=== PATIENT | female | born 1990 | race Caucasian/White ===

== ENCOUNTER 2018-02-17 03:43 | Inpatient (IN) | payer BC ==
--- OUTSIDE RECORDS SUMMARY | 2018-02-17 18:56 | XMS REPORT ---
:1990 Author Organization eClinicalWorks Care Team Providers Name Role Phone You Petit Provider Role Unavailable Allergies No Known Allergies Problems Problem Type Condition Code Onset Dates Condition Status Assessment Encounter for supervision of normal Z34.03 Active first in third trimester Assessment Abnormal glucose affecting O99.810 Active Assessment Obesity complicating in O99.213 Active third trimester Problem Encounter for supervision of normal Z34.03 Active first in third trimester Problem Abnormal glucose affecting O99.810 Active Problem Obesity complicating in O99.213 Active third trimester Problem Encounter for supervision of normal Z34.02 Active first in second trimester Problem Obesity affecting in O99.212 Active second trimester Problem Seasonal allergic rhinitis, J30.2 Active unspecified trigger Problem Cough R05 Active Medications Medication Code System Code Instructions Start Date End Date Status Dosage [facility] [address] Active not defined 1 Results No Known Results Summary Purpose eClinicalWorks Submission
--- OUTSIDE RECORDS SUMMARY | 2018-02-17 18:56 | XMS REPORT ---
:1990 Author Organization eClinicalWorks Care Team Providers Name Role Phone You Petit Provider Role Unavailable Allergies No Known Allergies Problems Problem Type Condition Code Onset Dates Condition Status Assessment Obesity affecting in O99.212 Active second trimester Assessment Encounter for supervision of normal Z34.03 Active first in third trimester Problem Abnormal glucose affecting O99.810 Active Problem Cough R05 Active Problem Encounter for supervision of normal Z34.03 Active first in third trimester Problem Obesity affecting in O99.212 Active second trimester Assessment Abnormal glucose affecting O99.810 Active Problem Seasonal allergic rhinitis, J30.2 Active unspecified trigger Problem Encounter for supervision of normal Z34.02 Active first in second trimester Medications Medication Code System Code Instructions Start Date End Date Status Dosage [facility] [address] Active not defined 1 Results No Known Results Summary Purpose [employer] Submission
--- OUTSIDE RECORDS SUMMARY | 2018-02-17 18:56 | XMS REPORT ---
[...] Instructions Start Date End Date Status Dosage NDC 0 Active not defined Results No Known Results Summary Purpose eClinicalWorks Submission
--- OUTSIDE RECORDS SUMMARY | 2018-02-17 18:56 | XMS REPORT ---
[...] Instructions Start Date End Date Status Dosage [facility] [address] Active not defined 1 Results No Known Results Immunizations Vaccine Administration Date TDAP > 7 Years-Adacel January 26, 2018 Summary Purpose eClinicalWorks Submission
--- OUTSIDE RECORDS SUMMARY | 2018-02-17 18:56 | XMS REPORT ---
:1990 Author Organization eClinicalWorks Care Team Providers Name Role Phone Jeannette Parada Provider Role Unavailable Allergies, Adverse Reactions, Alerts Substance Reaction Event Type N.K.D.A. Info Not Available Non Drug Allergy Problems Problem Type Condition Code Onset Dates Condition Status Problem Seasonal allergic rhinitis, J30.2 Active unspecified trigger Problem Obesity affecting in O99.212 Active second trimester Problem Cough R05 Active Assessment Seasonal allergic rhinitis, J30.2 Active unspecified trigger Problem Encounter for supervision of normal Z34.02 Active first in second trimester Assessment Cough R05 Active Medications Medication Code System Code Instructions Start Date End Date Status Dosage [facility] [address] Active not defined 1 Results No Known Results Summary Purpose eClinicalWorks Submission
--- OUTSIDE RECORDS SUMMARY | 2018-02-17 18:56 | XMS REPORT ---
:1990 Author Organization eClinicalWorks Care Team Providers Name Role Phone You Petit Provider Role Unavailable Allergies No Known Allergies Problems Problem Type Condition Code Onset Dates Condition Status Problem Encounter for supervision of normal Z34.03 Active first in third trimester Problem Abnormal glucose affecting O99.810 Active Problem Obesity complicating in O99.213 Active third trimester Problem Encounter for supervision of normal Z34.02 Active first in second trimester Problem Obesity affecting in O99.212 Active second trimester Problem Seasonal allergic rhinitis, J30.2 Active unspecified trigger Problem Cough R05 Active Medications No Known Medications Results No Known Results Summary Purpose eClinicalWorks Submission
--- OUTSIDE RECORDS SUMMARY | 2018-02-17 18:56 | XMS REPORT ---
[...] Start Date End Date Status Dosage [facility] [address] Active not defined 1 Results No Known Results Summary Purpose eClinicalWorks Submission
--- OUTSIDE RECORDS SUMMARY | 2018-02-17 18:56 | XMS REPORT ---
:1990 Author Organization eClinicalWorks Care Team Providers Name Role Phone You Petit Provider Role Unavailable Allergies No Known Allergies Problems Problem Type Condition Code Onset Dates Condition Status Problem Cough R05 Active Problem Seasonal allergic rhinitis, J30.2 Active unspecified trigger Problem Abnormal glucose affecting O99.810 Active Assessment Obesity affecting in O99.212 Active second trimester Assessment Encounter for supervision of normal Z34.02 Active first in second trimester Problem Obesity affecting in O99.212 Active second trimester Problem Encounter for supervision of normal Z34.02 Active first in second trimester Medications Medication Code System Code Instructions Start Date End Date Status Dosage [facility] [address] Active not defined 1 Results No Known Results Summary Purpose eClinicalWorks Submission
--- OUTSIDE RECORDS SUMMARY | 2018-02-17 18:56 | XMS REPORT ---
:1990 Author Organization eClinicalWorks Care Team Providers Name Role Phone You Petit Provider Role Unavailable Allergies No Known Allergies Problems Problem Type Condition Code Onset Dates Condition Status Assessment Encounter for supervision of normal Z34.03 Active first in third trimester Problem Encounter for supervision of [...] Instructions Start Date End Date Status Dosage [facility] [address] Active not defined 1 Results No Known Results Summary Purpose eClinicalWorks Submission
--- OUTSIDE RECORDS SUMMARY | 2018-02-17 18:56 | XMS REPORT ---
:1990 Author Organization eClinicalWorks Care Team Providers Name Role Phone You Petit Provider Role Unavailable Allergies No Known Allergies Problems Problem Type Condition Code Onset Dates Condition Status Problem Encounter for supervision of normal Z34.02 Active first in second trimester Assessment Obesity affecting in O99.212 Active second trimester Problem Obesity affecting in O99.212 Active second trimester Assessment Encounter for supervision of normal Z34.02 Active first in second trimester Medications No Known Medications Results No Known Results Summary Purpose eClinicalWorks Submission
--- OUTSIDE RECORDS SUMMARY | 2018-02-17 18:56 | XMS REPORT ---
:1990 Author Organization eClinicalWorks Care Team Providers Name Role Phone You Petit Provider Role Unavailable Allergies No Known Allergies Problems Problem Type Condition Code Onset Dates Condition Status Assessment Abnormal glucose affecting O99.810 Active Problem Cough R05 Active Problem Seasonal allergic rhinitis, J30.2 Active unspecified trigger Problem Abnormal glucose affecting O99.810 Active Assessment Encounter for supervision of normal Z34.02 Active first in second trimester Assessment Obesity affecting in O99.212 Active second trimester Problem Obesity affecting in O99.212 Active second trimester Problem Encounter for supervision of normal Z34.02 Active first in second trimester Medications No Known Medications Results No Known Results Summary Purpose eClinicalWorks Submission
--- OUTSIDE RECORDS SUMMARY | 2018-02-17 18:56 | XMS REPORT ---
:1990 Author Organization eClinicalWorks Care Team Providers Name Role Phone You Petit Provider Role Unavailable Allergies No Known Allergies Problems Problem Type Condition Code Onset Dates Condition Status Assessment Encounter for supervision of normal Z34.03 Active first in third trimester Assessment Abnormal glucose affecting O99.810 Active Assessment Obesity affecting in O99.212 Active second trimester Problem Abnormal glucose affecting O99.810 Active Problem Cough R05 Active Problem Encounter for supervision of normal Z34.03 Active first in third trimester Problem Obesity affecting in O99.212 Active second trimester Problem Seasonal allergic rhinitis, J30.2 Active unspecified trigger Problem Encounter for supervision of normal Z34.02 Active first in second trimester Medications Medication Code System Code Instructions Start Date End Date Status Dosage [facility] [address] Active not defined 1 Results No Known Results Summary Purpose [facility] Submission
--- OUTSIDE RECORDS SUMMARY | 2018-02-17 18:56 | XMS REPORT ---
:1990 Author Organization eClinicalWorks Care Team Providers Name Role Phone You Petit Provider Role Unavailable Allergies No Known Allergies Problems Problem Type Condition Code Onset Dates Condition Status Problem Abnormal glucose affecting O99.810 Active Problem [...]
[2018-02-17] MEDS ORDERED: Ringers Lactate 1,000 ML IV PRN (19:09)
[2018-02-17] MEDS ORDERED: CARBOPROST TROME 250 MCG/ML IM PRN (19:15)
[2018-02-17] MEDS ORDERED: METHYLERGONOVINE 0.2MG/ML AMP IM PRN (19:15)
[2018-02-17 19:52] LABS: RPR Titer ND
[2018-02-17] MEDS ORDERED: Ringers Lactate 1,000 ML IV SCH (20:00)
[2018-02-17] MEDS ORDERED: OXYTOCIN/LR 20 UNITS/1,000 ML BAG IV SCH (20:00)
[2018-02-17 20:04] VITALS: BMI 35.2
[2018-02-17 20:05] LABS: Absolute Lymphocytes (CBC) 1.7 K/uL (0.7-4.9); Absolute Monocytes 0.8 K/uL (0.1-1.3); Absolute Neutrophil 6.1 K/uL (1.8-8.0); Basophils % 0.2 % (0-1.3); Eosinophils % 0.6 % (0-4.4); Hematocrit 33.9 % (36.0-45.0); Lymphocytes % 19.4 % (15.3-44.8); MCH 28.2 pg (27.0-35.0); MCV 82.6 fL (80-100); MPV 9.8 fL (7.6-11.3); Monocytes % 8.9 % (3.3-12.3)
[2018-02-17 20:08] LABS: Protime INR 0.92
[2018-02-17 20:16] LABS: ALT/SGPT 15 U/L (12-78); AST/SGOT 16 U/L (15-37); Albumin 2.5 g/dL (3.4-5.0); Alkaline Phosphatase 197 U/L (45-117); BUN Blood Urea Nitrogen 8 mg/dL (7-18); Bicarbonate 24 mmol/L (21-32); Bilirubin Direct < 0.1 mg/dL (0-0.2); Bilirubin Total 0.2 mg/dL (0.2-1.0); Glucose Level 91 mg/dL (74-106); Potassium 3.8 mmol/L (3.5-5.1); Protein, Total 6.5 g/dL (6.4-8.2); Sodium Level 140 mmol/L (136-145); Uric Acid 6.8 mg/dL (2.6-6.0)
[2018-02-17 20:46] LABS: Urine Appearance CLEAR; Urine Bilirubin NEGATIVE (NEG); Urine Blood NEGATIVE (NEG); Urine Color YELLOW; Urine Glucose NEGATIVE (NEG); Urine Protein NEGATIVE (NEG); Urine Specific Gravity 1.025 (1.005-1.030); Urine Urobilinogen 0.2 mg/dL (0.2-1.0)
[2018-02-17 21:00] LABS: Urine Microscopic Reflex NO UMIC
[2018-02-17] MEDS ORDERED: miSOPROStol 100 MCG TAB VAG SCH (21:00)
[2018-02-17] MEDS ORDERED: miSOPROStol 100 MCG TAB ONE (21:00)
[2018-02-17 21:37] LABS: Urine Protein/Creatinine Ratio 0.11 ratio (<0.15)
[2018-02-17 22:48] LABS: RPR (Rapid Plasma Reagin) NON-REACT (NON-REACT)
--- NOTE | 2018-02-18 06:08 | HP ---
Date of Admission: 02/17/2018 History Of Present Illness: Мария is a 27-year-old, 1, para 0, at 38 weeks and 6 days' gest ation, who presents for induction of labor due to preeclampsia. The patient has been followed with kerrie amado beginning at 9 weeks' gestation. care has been complicated by obesity, otherwise has been normal until approximately 36 weeks' gestation where she began to have some elevated blood pressures and proteinuria. Preeclamptic labs were performed last week and her uric acid was noted to be eleva yulissa. She denies any symptoms; no headache, no visual changes, no shortness of breath. She reports g ood movement, denies vaginal bleeding, no leakage of fluid, and her contractions have been mini mal. She recently had an ultrasound performed on February 04, 2018, which showed that the fetus is in ce phalic presentation, measuring appropriately; placenta is anterior, no previa; and amniotic fluid vol ume was normal. records are available for review, no issues were noted. Past Medical History: Positive for HPV. Past Surgical History: She had a procedure done on her left femur in 2007. Social History: to the father of the baby. Works in an office. No tobacco, alcohol, or melinda g use. Family History: Noncontributory. Physical Examination: Vital Signs: On admission, blood pressure is 136/90, pulse of 78, respirations 18, temperature is 98 .6. General: The patient resting comfortably in bed. Head and Neck: Normocephalic, atraumatic. Neck: Supple. Heart: Regular rate and rhythm. Respiratory: Symmetric, nonlabored breathing. Abdomen: Gravid. Extremities: Bilateral lower extremities with +2 edema bilaterally. Vagina: Normal external female genitalia. Vagina is pink, moist, normal rugae. Cervix is closed, 5 0% effaced, -3 station. First dose of Cytotec has been placed. Heart Rate Monitoring: Baseline heart rate is 130, moderate variability, category 2 trac ing Leota: Irregular contractions noted. Laboratory Findings: White blood cell count 8.7, hemoglobin 11.6, hematocrit 33.9, platelet count is 214. Liver enzymes are normal. Uric acid is 6.8. Urine labs are pending. Assessment And Plan: Мария is a 27-year-old, 1, para 0, at 38 weeks and 5 days, who present s for cervical ripening and is scheduled for induction of labor for tomorrow due to likely preeclamps ia. Cytotec has been placed for cervical ripening, next dose will be given in 4 hours. GBS test is negative. Continuous maternal monitoring will be started tomorrow. Intermittent monitoring wi ll be performed overnight. AUGUSTINA Voice ID: [id number]
[2018-02-18] MEDS ORDERED: ROPIVACAINE HCL 100 ML IV PRN (09:46)
[2018-02-18] MEDS ORDERED: ROPIVACAINE HCL 0.2% 20ML AMP IV ONE (09:49)
[2018-02-18] MEDS ORDERED: FENTANYL CITR 100 MCG/2 ML IV ONE (09:50)
[2018-02-18] MEDS ORDERED: NA CIT/CITRIC AC 30 ML ORAL UDC PO ONE (13:44)
[2018-02-18] MEDS ORDERED: METOCLOPRAMIDE 10 MG/2mL INJ IV SCH (14:00)
[2018-02-18] MEDS ORDERED: CEFAZOLIN/SWI 2gm 2 GM/20 ML SYR IVP SCH (14:00)
[2018-02-18] MEDS ORDERED: ROPIVACAINE HCL 20 ML ONE (16:30)
[2018-02-18] MEDS ORDERED: CARBOPROST TROME 250 MCG/ML IM ONE (16:43)
[2018-02-18] MEDS ORDERED: METHYLERGONOVINE 0.2MG/ML AMP IM ONE (16:43)
[2018-02-18] MEDS ORDERED: ACETAMINOPHEN 500 MG TAB PO PRN (17:17)
[2018-02-18] MEDS ORDERED: ONDANSETRON 4 MG (ODT) TAB PO PRN (17:17)
[2018-02-18] MEDS ORDERED: METHYLERGONOVINE 0.2 MG TAB PO PRN (17:17)
[2018-02-18] MEDS ORDERED: BISACODYL 10 MG RECTAL SUPP RECT PRN (17:17)
[2018-02-18] MEDS ORDERED: Oxycodone HCl/Acetaminophen 1 TAB TAB PO PRN (17:17)
[2018-02-18] MEDS: IBUPROFEN 200 MG TAB PO PRN (21:39)
--- NOTE | 2018-02-18 22:28 | P.OP ---
Date of Service: 02/18/18 Findings and Operative Technique Patient delivered a viable female infant in cephalic presentation on February 18, 2018 at 4:54 p.m.. was delivered without difficulty over a midline episiotomy. Once was delivered nose and mouth were suctioned with a suction bulb. Cord was clamped and cut. was placed on mother's abdomen for skin to skin bonding. Attention was then turned to the placenta which was delivered at 4:57 p.m. with gentle traction it was noted to be intact. Attention was then turned to the midline episiotomy which was noted to be second -degree and was repaired with a 2 0 Vicryl in the usual fashion. Periurethral tears were noted as well which did not need repairing. Apgars were found to be 8/9. Baby girl weighed 7 lb 4 oz. EBL was 250 cc. Both mom and baby are doing well.
[2018-02-19 05:44] LABS: Absolute Lymphocytes (CBC) 2.2 K/uL (0.7-4.9); Absolute Monocytes 1.2 K/uL (0.1-1.3); Absolute Neutrophil 12.6 K/uL (1.8-8.0); Basophils % 0.1 % (0-1.3); Eosinophils % 0.1 % (0-4.4); Hematocrit 35.3 % (36.0-45.0); Lymphocytes % 13.9 % (15.3-44.8); MCH 28.3 pg (27.0-35.0); MCV 83.1 fL (80-100); Monocytes % 7.3 % (3.3-12.3); RBC Red Blood Cell Count 4.25 M/uL (3.86-4.86)
[2018-02-19] MEDS: IBUPROFEN 200 MG TAB PO PRN (11:03)
[2018-02-19] MEDS ORDERED: FAMOTIDINE 20 MG/2 ML VIAL IV ONE (13:46)
[2018-02-19 16:00] VITALS: BP 135/75; TEMP 97.1
[2018-02-21 04:12] LABS: HBsAG Nonreactive (Nonreactive)
--- NOTE | 2018-02-25 11:52 | P.DS ---
Admission Date: 02/17/18 Discharge Date: 02/19/18 Disposition: ROUTINE DISCHARGE Discharge Condition: GOOD Procedures: Cervical ripening/induction of labor Artificial rupture of membranes Vaginal delivery Repair of episiotomy care Epidural placed by Anesthesia Brief History of Present Illness: See history and physical Hospital Course: The patient did well following delivery of the . She is bonding well with the . She is trying to breast feed. She does not have any fever chills. No nausea or vomiting. She is tolerating a regular diet. She is ambulating well. Pain is under control. Vital Signs/Physical Exam: Temp Pulse Resp BP Pulse Ox 97.1 F 90 18 135/75 02/19/18 15:58 02/19/18 15:58 02/19/18 15:58 02/19/18 15:58 General: Alert, In no apparent distress HEENT: Atraumatic Neck: Supple Respiratory: Normal air movement Cardiovascular: Normal pulses Capillary refill: <2 Seconds Gastrointestinal: Soft and benign (Fundus firm palpable beneath umbilicus) Laboratory Data at Discharge: WBC 16.0 K/uL (4.3-10.9) H D 02/19/18 05:11 Hgb 12.0 g/dL (12.0-15.0) 02/19/18 05:11 Hct 35.3 % (36.0-45.0) L 02/19/18 05:11 Plt Count 191 K/uL (152-406) 02/19/18 05:11 PT 10.8 SECONDS (9.5-12.5) 02/17/18 19:30 INR 0.92 02/17/18 19:30 APTT 26.6 SECONDS (24.3-36.9) 02/17/18 19:30 Sodium 140 mmol/L (136-145) 02/17/18 19:45 Potassium 3.8 mmol/L (3.5-5.1) 02/17/18 19:45 BUN 8 mg/dL (7-18) 02/17/18 19:45 Creatinine 0.80 mg/dL (0.55-1.3) 02/17/18 19:45 Glucose 91 mg/dL (74-106) 02/17/18 19:45 Uric Acid 6.8 mg/dL (2.6-6.0) H 02/17/18 19:45 Total Bilirubin 0.2 mg/dL (0.2-1.0) 02/17/18 19:45 AST 16 U/L (15-37) 02/17/18 19:45 ALT 15 U/L (12-78) 02/17/18 19:45 Alkaline Phosphatase 197 U/L (45-117) H 02/17/18 19:45 Home Medications: Vitamin [ VITAMIN*] 1 tab PO DAILY 02/17/18 Diet: Regular Activity: No lifting more than 10 lbs Followup: You Petit DO [ACTIVE - CAN ADMIT] - (Follow up care with Dr. Petit in 4- 6 weeks. [phone])
== END 2018-02-19 18:35 | disposition home or self-care (01) | DRG 775 ==
LOC: 2ND-WC 18:54
PROVIDERS: ADMIT Student in an Organized Health Care Education/Training Program; ATTEND Student in an Organized Health Care Education/Training Program
PROC: 3E0P7VZ Introduction of Hormone into Female Reproductive, Via Natural or Artificial Opening (ICD-10-PCS; 2018-02-17)
PROC: 3E033VJ Introduction of Other Hormone into Peripheral Vein, Percutaneous Approach (ICD-10-PCS; 2018-02-17)
PROC: 10907ZC Drainage of Amniotic Fluid, Therapeutic from Products of Conception, Via Natural or Artificial Opening (ICD-10-PCS; 2018-02-17)
PROC: 10E0XZZ Delivery of Products of Conception, External Approach (ICD-10-PCS; principal; 2018-02-18)
PROC: 0W8NXZZ Division of Female Perineum, External Approach (ICD-10-PCS; 2018-02-18)
DX: O14.94 Unspecified pre-eclampsia, complicating childbirth (principal); Z3A.38 38 weeks gestation of pregnancy; Z37.0 Single live birth; O99.214 Obesity complicating childbirth; Z68.35 Body mass index [BMI] 35.0-35.9, adult; O71.82 Other specified trauma to perineum and vulva
CPT/HCPCS: 36415; 80048; 80076; 81003; 82570; 84156; 84550; 85025; 85610; 85730; 86592; 86850; 86900; 86901; 87340; J2210; J2590; J2795; J3010